=== PATIENT | male | born 1950 | race Caucasian/White ===

== ENCOUNTER 2016-11-21 09:57 | Emergency (ER) | payer OTHER ==
[~2016-11-21] VITALS: Ht 175.3 cm; Wt 74.5 kg
[2016-11-21 11:59] VITALS: BP 137/85
== END 2016-11-21 11:59 | disposition home or self-care (01) ==
LOC: ED 09:57
DX: S70.11XA Contusion of right thigh, initial encounter (principal); W20.8XXA Other cause of strike by thrown, projected or falling object, initial encounter; Y93.89 Activity, other specified; Y92.89 Other specified places as the place of occurrence of the external cause; Y99.8 Other external cause status